=== PATIENT | male | born 1970 | race Asian ===

== ENCOUNTER → 2019-05-23 | Outpatient (CLI) | payer BC, OTHER ==
[~2019-05-23] MED LIST: LISI-167; SIMV10TA3; TRAM50TA2; TRAZ50TA66
== END | disposition home or self-care (01) ==
LOC: CARD 08:17
PROVIDERS: ATTEND Nurse Practitioner Primary Care
DX: M54.12 Radiculopathy, cervical region (principal)
CPT/HCPCS: 95908